=== PATIENT | male | born 1945 | race Caucasian/White ===

== ENCOUNTER 2020-11-17 08:47 | Outpatient (CLI) | payer OTHER, SELFPAY ==
--- NOTE | 2020-11-17 08:57 | US_ITS ---
WS: [id number] ULTRASOUND ABDOMEN LIMITED CLINICAL INFORMATION: EPIGASTRIC RUQ PAIN COMPARISON: None. FINDINGS: Liver Size: Enlarged Craniocaudal length: 15.6 cm. Echogenicity: Coarse Surface nodularity: None. Mass (size and location): None. Bile ducts Intrahepatic ducts: Normal. Common bile duct diameter: 0.7 cm. Gallbladder Cholelithiasis Gallstones: Present Gallbladder sludge: None. Gallbladder wall thickening: None. Pericholecystic fluid: None. Sonographic Cortez sign: Absent. Pancreas Normal as visualized. Right kidney: Normal. Hydronephrosis: None. Size: 11.0 cm x 5.9 cm x 6.0 cm. Abdominal aorta and IVC Visualized portions are normal. Ascites: None. US/US abdomen limited 23158 IMPRESSION: 1. Mild hepatomegaly. Diffuse fatty infiltration. 2. Cholelithiasis. No gallbladder wall thickening or pericholecystic fluid. Co mmon bile duct measures 6.5 mm. 3. No hydronephrosis right kidney.
== END 2020-11-17 08:48 | disposition home or self-care (01) ==
LOC: RAD 08:52
PROVIDERS: PCP Family Medicine; Visit Provider Family Medicine
DX: R10.13 Epigastric pain (principal); R10.11 Right upper quadrant pain; R16.0 Hepatomegaly, not elsewhere classified; K76.0 Fatty (change of) liver, not elsewhere classified; K80.20 Calculus of gallbladder without cholecystitis without obstruction
CPT/HCPCS: 76705

== ENCOUNTER → 2020-12-01 10:06 | Outpatient (BNVA) | payer OTHER, SELFPAY | PROVIDERS: PCP Family Medicine; Visit Provider Surgery | DX: K80.20 Calculus of gallbladder without cholecystitis without obstruction (principal); Z20.822 Contact with and (suspected) exposure to COVID-19 | CPT/HCPCS: 87635 ==

== ENCOUNTER 2020-12-05 10:26 | Day surgery (SDC) | payer OTHER, SELFPAY ==
--- NOTE | 2020-12-05 10:33 | ECG_ITS ---
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 Measurements Intervals [place] Rate: 47 P: 40 NV: 157 QRS: 45 QRSD: 93 T: 20 QT: 434 QTc: 387 Interpretive Statements SINUS BRADYCARDIA No previous ECG available for comparison Electronically Signed On 12-05-2020 16:10:11 CDT by Garry Hobson M.D. [id number]
[2020-12-05 10:41] VITALS: BP 156/80; PULSE 48; RESP 18; TEMP 36.7; O2SAT 96; BMI 31.3
[2020-12-05 11:09] LABS: Glucose Point of Care 137 mg/dL (70-110)
[2020-12-05] MEDS: sodium chloride 0.9% 1,000 ML 30 ML IV (11:09)
--- NOTE | 2020-12-05 11:10 | W.PM.OPSUD ---
Surgery/Procedure H&P Update DATE OF PROCEDURE: December 05, 2020 DATE H&P PERFORMED: 11/28/20 H&P UPDATE INFORMATION: I have reviewed H&P completed within last 30 days, I have examined patient prior to procedure and No changes to prior documentation PREOP DIAGNOSIS: cholelithiasis PLANNED PROCEDURE: Operation Date: 12/05/20 13:35 Proposed Procedures p Laparoscopic Cholecyst[place] 59681 k80.30(Not Applicable) - Renato Vasquez MD
--- NOTE | 2020-12-05 11:15 | P.ANESASSM_ITS ---
Pre-Anesthetic Assessment Pre-Anesthetic Assessment: Height/Weight: Height 1.7 m Weight 90.718 kg Temp Pulse Resp BP Pulse Ox 98.0 F 48 L 18 156/80 96 12/05/20 10:41 12/05/20 10:41 12/05/20 10:41 12/05/20 10:41 12/05/20 10:41 Preop Diagnosis: cholelithiasis Proposed Procedure: Operation Date: 12/05/20 13:35 Proposed Procedures p Laparoscopic Cholecystectomy [place] open 08495 k80.30(Not Applicable) - Renato Vasquez MD Familial anesthetic complications: None Was Beta Kristine taken within 24 hours: Yes Was Clonidine taken within 24 hours: N/A Last intake: Intake Last Liquid Date 12/04/20 Last Solid Date 12/04/20 Social: Social History: No alcohol and No tobacco Exam: Pre-Anes Outpt Exam: alert, oriented x 3, clear to auscultation bilaterally and regular rate & rhythm Airway: Cervical ROM: WNL MP: 3 Dentition: Partials and Other (bridge) Pulmonary: Pulmonary: Sleep apnea CV/HEM: CV/HEM: HTN GI: GI: GERD Metabolic: Metabolic: DM Anesthetic Plan: ASA status: 3 Anesthesia: General Risk of > 500 ml bloo d loss (7ml/kg in children): No Meds/Allergies Current Medications: Current Medications Generic Name Dose Route Start Last Admin Trade Name Freq PRN Reason Stop Dose Admin Sodium Chloride 1,000 mls @ 30 ml s/hr 12/05/20 09:30 12/05/20 11:09 Sodium Chloride 0.9% IV 12/06/20 09:29 30 mls/hr .Q24H JOSE MANUEL Administration PFSH Anesthesia PFSH: Medical History (Updated 11/28/20 @ 14:31 by Renato Vasquez MD) Diabetes mellitus GERD (gastroesophageal reflux disease) Gout Hyperlipidemia Hypertension Neuropathy Osteoarthritis Prostate cancer Sleep apnea Surgical History (Updated 11/28/20 @ 14:31 by Renato Vasquez MD) History of prostate surgery Radiation implants History of shoulder surgery Status post colonoscopy Family History (Updated 11/28/20 @ 14:14 by LOYD Ortega) Denies family history of Anesthesia complication Bleeding disorder Social History (Updated 11/28/20 @ 14:14 by LOYD Ortega) Smoking and tobacco status: never smoked Alcohol intake: never Data Anesthesia CBC & Chem 7: 12/05/20 10:51 Other Labs: Laboratory Results - last 48 hr 12/05/20 11:04 POC Glucose 137 H Cardiac Studies: No Data to Display
[2020-12-05 11:34] LABS: Blood Urea Nitrogen 13 mg/dL (8-23); Calcium 9.2 mg/dL (8.5-10.5); Carbon Dioxide 24 mmol/L (22-29); Chloride 104 mmol/L (98-107); Glucose 144 mg/dL (65-115); Osmolality Calculated 291 mOsm/kg (285-295); Sodium 139 mmol/L (136-145)
[2020-12-05 11:35] LABS: Anion Gap 15.6 (5-19); Potassium 4.6 mmol/L (3.5-5.1)
--- NOTE | 2020-12-05 12:28 | P.OP_ITS ---
Operative Report Date of procedure: December 05, 2020 Pre-op Diagnosis: cholelithiasis Post-op diagnosis: same Procedure Done: Laparoscopic cholecystectomy Specimens removed/disposition: Gallbladder Surgeon: Renato Vasquez Anesthesia: General Procedure: The patient was taken to the operating room and was intubated under general anesthesia. After the antibiotic had been administered, the abdomen was prepped and draped in a sterile manner. Using a #15 blade, a 1 centimeter infraumbilical curvilinear incision was made and using an open Adrian technique the peritoneal cavity was entered. A 10 millimeter port was placed and 15 millimeters of pneumoperitoneum was created. A 10 millimeter, 30 degrees scope was then introduced. Three 5 millimeter ports were placed in the epigastric, midclavicular and the anterior axillary line two fingerbreadths below the costal margin on the right side under the direct visualization. Ratcheted forceps were introduced into the lateral most port and was used to retract the fundus of the gallbladder cephalad and using forceps the infundibulum of the gallbladder was retracted laterally. Using L-hook cautery the peritoneum overlying the Calot's triangle was opened medially and laterally until the cystic duct and the cystic artery were skeletonized. Dissection was carried along the body of the gallbladder and after ensuring critical view of safety, 4 clips applied on the cystic duct and 3 clips applied on the cystic artery and cut leaving, 3 clips on the remaining portion of the duct and 2 clips on the remaining portion of the artery. The anterior and posterior branches of the cystic artery were clipped separately. The rest of the gallbladder was dissected off the liver using L- hook cautery. There was no bleeding or bile leaking noted from the gallbladder fossa and the clips appeared to be in place. An EndoCatch bag was introduced to remove the gallbladder. All the ports were removed under direct visualization and there was no bleeding noted from the port sites. The fascia of the umbilicus was closed using [id number] 0 Vicryl sutures and the subcutaneous tissue was approximated using 3-0 Vicryl sutures. The skin at all four ports were closed using 4-0 Monocryl and Dermabond. A total of 10 millimeters of 0.5% Marcaine was infiltrated around the port sites. The patient was stable throughout the procedure.
[2020-12-05 12:40] VITALS: BP 143/78; PULSE 78; RESP 15; TEMP 36.3; O2SAT 94
[2020-12-05 12:45] VITALS: BP 148/76; PULSE 58; RESP 17; O2SAT 96
[2020-12-05 12:50] VITALS: BP 148/76; PULSE 60; RESP 16; O2SAT 97
[2020-12-05 12:55] VITALS: BP 146/76; PULSE 61; RESP 18; TEMP 36.4; O2SAT 97
[2020-12-05 13:01] VITALS: BP 146/100; PULSE 63; RESP 18; TEMP 36.4; O2SAT 96
[2020-12-05] MEDS: HYDROcodone-acetaminophen 5-325 mg Tablet 1 TAB PO (13:18)
--- NOTE | 2020-12-05 17:43 | ANE.PACU2 ---
Inpatient post-anesthesia follow up: Airway intact: Yes Vital signs: Temperature 97.6 F Pulse Rate 63 Respiratory Rate 18 Blood Pressure 146/100 Pulse Oximetry 96 Oxygen Delivery Me thod Room Air Oxygen Flow Rate 3 Fraction of Inspir ed Oxygen Hydration adequate: Yes Nausea and vomiting: No Pain level: 3 Mental status: Baseline
== END 2020-12-05 13:40 | disposition home or self-care (01) ==
PROVIDERS: Visit Provider Surgery
PROC: 0FT44ZZ Resection of Gallbladder, Percutaneous Endoscopic Approach (ICD-10-PCS; CPT 47562; principal; 2020-12-05 13:15)
DX: K80.10 Calculus of gallbladder with chronic cholecystitis without obstruction (principal); G47.30 Sleep apnea, unspecified; I10 Essential (primary) hypertension; K21.9 Gastro-esophageal reflux disease without esophagitis; E78.5 Hyperlipidemia, unspecified; M19.90 Unspecified osteoarthritis, unspecified site; Z85.46 Personal history of malignant neoplasm of prostate; E11.40 Type 2 diabetes mellitus with diabetic neuropathy, unspecified; Z79.84 Long term (current) use of oral hypoglycemic drugs
CPT/HCPCS: 47562; 36415; 36416; 80048; 82962; 88304; 93005; J0690; J1100; J2405; J2704; J2710; J3010; J3490; J7030

== ENCOUNTER → 2021-10-31 08:06 | Outpatient (BNVA) | payer OTHER, SELFPAY | PROVIDERS: Referring Provider Family Medicine; Visit Provider Surgery | DX: K63.5 Polyp of colon (principal); R10.13 Epigastric pain | CPT/HCPCS: 99214 ==

== ENCOUNTER 2021-11-08 08:41 | Day surgery (SDC) | payer OTHER, SELFPAY ==
[2021-11-07 07:58] VITALS: BMI 33.2
[2021-11-08 09:04] VITALS: BP 144/69; PULSE 52; RESP 16; TEMP 36.1; O2SAT 97
[2021-11-08] MEDS: sodium chloride 0.9% 1,000 ML 30 ML IV (09:13)
--- NOTE | 2021-11-08 09:30 | ANES.PREANE2 ---
Pre-Anesthetic Assessment Height/Weight: Height 1.7 m Weight 96.162 kg Temp Pulse Resp BP Pulse Ox 97 F L 52 L 16 144/69 97 11/08/21 09:04 11/08/21 09:04 11/08/21 09:04 11/08/21 09:04 11/08/21 09:04 Preop Diagnosis: upper gi symptoms Operation Date: 11/08/21 10:30 Proposed Procedures p EGD Dilation 28072/39260/k63.5/r10.13(Not Applicable) - Renato Vasquez MD s Colonoscopy(Not Applicable) - Renato Vasquez MD Familial anesthetic complications: None Was Beta Kristine taken within 24 hours: N/A Was Clonidine taken within 24 hours: N/A Last intake: Intake Last Liquid Date 11/07/21 Last Liquid Time 20:00 Last Solid Date 11/06/21 Last Solid Time 00:00 Social No alcohol and No tobacco Airway Mallampati: Class III Dentition: partials (bridge) Pulmonary Sleep Apnea CV/HEM Hypertension GI Gastroesophageal Reflux Disease Metabolic Diabetes Mellitus Anesthetic Plan ASA status: 2 Anesthesia: MAC Risk of > 500 ml blood loss (7ml/kg in children): No Medications/Allergies Home Medications Medication Instructions Recorded Confirmed Last Taken Type amlodipine 10 mg tablet 10 mg PO DAILY 11/28/20 11/08/21 11/08/21 History glipizide 10 mg tablet 20 mg PO BID tab 11/28/20 11/08/21 11/07/21 History hydrochlorothiazide 25 mg tablet 25 mg PO DAILY 11/28/20 11/08/21 11/07/21 History lisinopril 20 mg tablet 20 mg PO BID 11/28/20 11/08/21 11/07/21 History metformin 1,000 mg tablet 1,000 mg PO BID tab 11/28/20 11/08/21 11/07/21 History metoprolol succinate 25 mg 25 mg PO BID tab 11/28/20 11/08/21 11/08/21 History tablet,extended release 24 hr omega-3 fatty acids 1,000 mg 1,000 mg PO DAILY 11/28/20 11/08/21 11/07/21 History capsule (Fish Oil Concentrate) pantoprazole 40 mg tablet,delayed 40 mg PO DAILY 11/28/20 11/08/21 11/07/21 History release pioglitazone 30 mg tablet 30 mg PO DAILY 11/28/20 11/08/21 11/07/21 History tamsulosin 0.4 mg capsule 0.4 mg PO BID cap 11/28/20 11/08/21 11/07/21 History allopurinol 300 mg tablet 150 mg PO DAILY 10/31/21 11/08/21 11/07/21 History cholestyramine (with sugar) 4 gram 1 ea PO DAILY 10/31/21 11/08/21 11/07/21 History oral powder ondansetron HCl 4 mg tablet 2 mg PO Q6H 11/07/21 11/08/21 11/07/21 History Allergies Allergy/AdvReac Type Severity Reaction Status Date / Time pneumococcal vaccine Allergy Unknown Verified 11/07/21 08:07 [From Pneumovax-23] pravastatin Allergy Unknown Verified 11/07/21 08:07 Current Medications Generic Name Dose Route Start Last Admin Trade Name Freq PRN Reason Stop Dose Admin Sodium Chloride 1,000 mls @ 30 mls/hr 11/08/21 09:00 11/08/21 09:13 Sodium Chloride 0.9% IV 11/09/21 08:59 30 mls/hr .Q24H JOSE MANUEL Administration PFSH Anesthesia Medical History Colon polyps Diabetes mellitus GERD (gastroesophageal reflux disease) Gout Hyperlipidemia Hypertension Neuropathy Osteoarthritis Prostate cancer Sleep apnea Surgical History History of prostate surgery Radiation implants History of shoulder surgery Status post colonoscopy Status post laparoscopic cholecystectomy (12/05/20) Family History Denies family history of Anesthesia complication Bleeding disorder Social History Smoking and tobacco status: never smoked Alcohol intake: never Data Anesthesia Cardiac Studies: No Data to Display
--- NOTE | 2021-11-08 10:58 | W.PM.OPSFHP ---
Same Day Surgery H&P Indication for Procedure/HPI DATE OF PROCEDURE: November 08, 2021 CHIEF COMPLAINT/INDICATIONFOR SURGICAL PROCEDURE: Dysphagia/colon polyps PREOP DIAGNOSIS: upper gi symptoms PLANNED PROCEDURE: Operation Date: 11/08/21 10:30 Proposed Procedures p EGD Dilation 62080/87858/k63.5/r10.13(Not Applicable) - Renato Vasquez MD s Colonoscopy(Not Applicable) - Renato Vasquez MD Medications/Allergies* Home Medications Medication Instructions Recorded Confirmed Type amlodipine 10 mg tablet 10 mg PO DAILY 11/28/20 11/08/21 History glipizide 10 mg tablet 20 mg PO BID tab 11/28/20 11/08/21 History hydrochlorothiazide 25 mg tablet 25 mg PO DAILY 11/28/20 11/08/21 History lisinopril 20 mg tablet 20 mg PO BID 11/28/20 11/08/21 History metformin 1,000 mg tablet 1,000 mg PO BID tab 11/28/20 11/08/21 History metoprolol succinate 25 mg 25 mg PO BID tab 11/28/20 11/08/21 History tablet,extended release 24 hr omega-3 fatty acids 1,000 mg 1,000 mg PO DAILY 11/28/20 11/08/21 History capsule (Fish Oil Concentrate) pantoprazole 40 mg tablet,delayed 40 mg PO DAILY 11/28/20 11/08/21 History release pioglitazone 30 mg tablet 30 mg PO DAILY 11/28/20 11/08/21 History tamsulosin 0.4 mg capsule 0.4 mg PO BID cap 11/28/20 11/08/21 History allopurinol 300 mg tablet 150 mg PO DAILY 10/31/21 11/08/21 History cholestyramine (with sugar) 4 gram 1 ea PO DAILY 10/31/21 11/08/21 History oral powder ondansetron HCl 4 mg tablet 2 mg PO Q6H 11/07/21 11/08/21 History Allergies/Adverse Reactions Allergy/AdvReac Type Severity Reaction Status Date / Time pneumococcal vaccine Allergy Unknown Verified 11/07/21 08:07 [From Pneumovax-23] pravastatin Allergy Unknown Verified 11/07/21 08:07 Current Medications: Generic Name Dose Route Start Last Admin Trade Name Freq PRN Reason Stop Dose Admin Sodium Chloride 1,000 mls @ 30 mls/hr 11/08/21 09:00 11/08/21 09:13 Sodium Chloride 0.9% IV 11/09/21 08:59 30 mls/hr .Q24H JOSE MANUEL Administration Pertinent History/Comorbid Conditions* Medical History (Updated 10/31/21 @ 09:04 by Renato Vasquez MD) Colon polyps Diabetes mellitus GERD (gastroesophageal reflux disease) Gout Hyperlipidemia Hypertension Neuropathy Osteoarthritis Prostate cancer Sleep apnea Surgical History (Updated 12/21/20 @ 16:41 by Renato Vasquez MD) History of prostate surgery Radiation implants History of shoulder surgery Status post colonoscopy Status post laparoscopic cholecystectomy (12/05/20) Family History (Updated 11/28/20 @ 14:14 by Carolyn Guy RN) Denies family history of Anesthesia complication Bleeding disorder Social History Smoking and tobacco status: never smoked Alcohol intake: never Pertinent Exam Findings alert, oriented x 3 and regular rate & rhythm Recommendations Surgery/Procedure today Coding Level of Care Code Acute Cost Recovery Technician for Jannie Pleitez
[2021-11-08 11:48] VITALS: BP 126/82; PULSE 61; RESP 16; TEMP 36.2; O2SAT 91
[2021-11-08 11:49] VITALS: BP 128/84; PULSE 61; RESP 18; O2SAT 94
--- NOTE | 2021-11-08 13:39 | ANE.PACU2 ---
Inpatient post-anesthesia follow up: Airway intact: Yes Vital signs: Temperature 97.2 F Pulse Rate 61 Respiratory Rate 18 Blood Pressure 128/84 Pulse Oximetry 94 Oxygen Delivery Me thod Room Air Oxygen Flow Rate 3 Fraction of Inspir ed Oxygen Hydration adequate: Yes Nausea and vomiting: No Pain level: 1 Mental status: Baseline
== END 2021-11-08 12:12 | disposition home or self-care (01) ==
PROVIDERS: PCP Family Medicine; Visit Provider Surgery
PROC: 0DJD8ZZ Inspection of Lower Intestinal Tract, Via Natural or Artificial Opening Endoscopic (ICD-10-PCS; CPT 45378; 2021-11-08 10:30)
DX: R10.13 Epigastric pain (principal); Z86.010 Personal history of colon polyps; K57.30 Diverticulosis of large intestine without perforation or abscess without bleeding; K64.8 Other hemorrhoids; E11.40 Type 2 diabetes mellitus with diabetic neuropathy, unspecified; Z79.84 Long term (current) use of oral hypoglycemic drugs; K21.9 Gastro-esophageal reflux disease without esophagitis; E78.5 Hyperlipidemia, unspecified; I10 Essential (primary) hypertension; M19.90 Unspecified osteoarthritis, unspecified site; Z85.46 Personal history of malignant neoplasm of prostate; G47.30 Sleep apnea, unspecified
CPT/HCPCS: 43239; 45378; 88305; 88342; J2704; J3490; J7030

== ENCOUNTER 2022-02-08 09:58 | Outpatient (CLI) | payer OTHER, SELFPAY ==
--- NOTE | 2022-02-08 10:15 | FL_ITS ---
WS: [id number] Exam: FL barium swallow modifd [id number] Date/Time of Exam: 02/08/2022 10:14 AM Reason For Exam: R13.10 - Dysphagia, unspecified Fluoroscopy time: 1min [id number] minutes # of spot films: 1 modified barium swallow was performed in conjunction with the speech therapy servi ce. The patient tolerated thin liquid, nectar consistency and solid barium mixture foodstuffs without asp iration or penetration. Swallowing function at the level of oropharynx appears normal. The patient in gested a barium pill without complication. FL/FL barium swallow modifd 75761 IMPRESSION: 1. Modified barium swallow demonstrates no sign of penetration or aspiration. T he patient tolerated all consistencies of barium mixture foodstuffs without com plication. A separate report of recommendations and findings will follow from the speech t herapy service.
== END 2022-02-08 09:59 | disposition home or self-care (01) ==
PROVIDERS: PCP Family Medicine; Visit Provider Surgery
DX: R13.10 Dysphagia, unspecified (principal)
CPT/HCPCS: 74230; 92611

== ENCOUNTER → 2023-01-01 08:47 | Outpatient (BNVA) | payer OTHER, SELFPAY | PROVIDERS: PCP Family Medicine; Referring Provider Family Medicine; Visit Provider Specialist | DX: G50.0 Trigeminal neuralgia (principal); Y83.8 Other surgical procedures as the cause of abnormal reaction of the patient, or of later complication, without mention of misadventure at the time of the procedure | CPT/HCPCS: 99204 ==

== ENCOUNTER → 2023-02-12 11:39 | Outpatient (BNVA) | payer OTHER, SELFPAY | PROVIDERS: PCP Family Medicine; Visit Provider Specialist | DX: G50.0 Trigeminal neuralgia | CPT/HCPCS: 99213 ==

== ENCOUNTER → 2024-02-11 11:14 | Outpatient (BNVA) | payer OTHER, SELFPAY | PROVIDERS: PCP Family Medicine; Visit Provider Specialist | DX: G50.0 Trigeminal neuralgia (principal) | CPT/HCPCS: 99213 ==

== ENCOUNTER → 2025-01-13 10:39 | Outpatient (BNVA) | payer OTHER, SELFPAY | PROVIDERS: PCP Family Medicine; Visit Provider Surgery | DX: D17.21 Benign lipomatous neoplasm of skin and subcutaneous tissue of right arm (principal) | CPT/HCPCS: 99214 ==

== ENCOUNTER 2025-01-18 09:35 | Day surgery (SDC) | payer OTHER, SELFPAY ==
[2025-01-18 09:51] VITALS: BP 166/83; PULSE 55; RESP 17; TEMP 36.4; O2SAT 95
--- NOTE | 2025-01-18 10:00 | P.HPUD_ITS ---
Surgery/Procedure H&P Update DATE OF PROCEDURE: January 19, 2025 DATE H&P PERFORMED: 01/13/25 H&P UPDATE INFORMATION: I have reviewed H&P completed within last 30 days, I have examined patient prior to procedure, No changes to prior documentation, H&P is in [facility] EMR on date indicated and Risks and benefits of the procedure reviewed PLANNED PROCEDURE: Operation Date: 01/18/25 11:00 Proposed Procedures p Excision RIGHT Upper Extremity Subcutaneous Mass 30575, D17.21(Right) - Arvin Persaud MD
[2025-01-18] MEDS: ceFAZolin 2,000 mg SDV 2000 MG IVP (11:27)
[2025-01-18] MEDS: BUPivacaine 0.25% INJ 10 mL INJECTION (11:56)
[2025-01-18] MEDS: lidocaine-epi 1% 20 mL INJ 10 ML INJECTION (11:56)
[2025-01-18 12:14] VITALS: BP 129/66; PULSE 60; RESP 10; TEMP 36.1; O2SAT 95
--- NOTE | 2025-01-18 12:17 | P.OP_ITS ---
Operative Report Date of procedure: January 18, 2025 Pre-op diagnosis: Right upper extremity subcutaneous lesion Post-op diagnosis: Right upper extremity subcutaneous lesion measuring 3.5 cm Post-op findings: There was an subcutaneous tissue lesion of the right upper extremity at the level of the posterior arm, the lesion was 3.5x 1 cm x 2 cm Procedure done: Excision of subcutaneous lesion of the right extremity Specimens removed/disposition: Subcutaneous lesion of the right upper extremity Surgeon: Arvin Persaud MD Mental Health Counselor: ADEOLA OR Staff Estimated blood loss: 5 Complications: none apparent Brief History: 79-year-old male with subcutaneous lesion of the right upper extremity who presented for excision. After discussion we will resume benefits as documented my preop note decided to proceed Procedure: Patient was brought into the OR, he was placed in a supine position. Moderate anesthesia and sedation was given. The right upper extremity was prepped and draped in usual sterile fashion. Timeout was conducted. In the previously marked area I proceeded to infiltrate local anesthesia. I then made a 3 cm incision overlying the subcutaneous lesion. The incision was deepened until the subcutaneous tissue was identified. I then used electrocautery to circumferentially dissect around the lesion. The lesion was elevated with an Allis clamp once again confidentially dissected from the tissue, the lesion was excised and passed to the scrub table to be sent to pathology. No residual tissue was noted at the base. Hemostasis was achieved. Local anesthesia was infiltrated. The wound was irrigated and then closed in layers with #3 Vicryl for the subcutaneous tissue and #4 Monocryl for the skin. Dermabond was applied. At the end of the procedure all counts were correct the patient tolerated well the procedure was transferred to the PACU in stable condition.
[2025-01-18 12:19] VITALS: BP 131/67; PULSE 60; RESP 11; O2SAT 94
[2025-01-18 12:24] VITALS: BP 139/65; PULSE 59; RESP 13; O2SAT 95
[2025-01-18 12:29] VITALS: BP 135/68; PULSE 60; RESP 15; TEMP 36.3; O2SAT 96
[2025-01-18 12:47] VITALS: BP 133/76; PULSE 58; RESP 17; O2SAT 96
--- NOTE | 2025-01-18 13:25 | ANE.PACU2 ---
Inpatient post-anesthesia follow up: Airway intact: Yes Vital signs: Temperature 97.4 F Pulse Rate 58 Respiratory Rate 17 Blood Pressure 133/76 Pulse Oximetry 96 Oxygen Delivery Me thod Room Air Oxygen Flow Rate Fraction of Inspir ed Oxygen Hydration adequate: Yes Nausea and vomiting: No Pain level: 1 Mental status: Baseline
== END 2025-01-18 13:25 | disposition home or self-care (01) ==
PROVIDERS: PCP Family Medicine; Visit Provider Surgery
PROC: (CPT 24071; principal; 2025-01-18 10:50)
DX: R22.31 Localized swelling, mass and lump, right upper limb (principal); K21.9 Gastro-esophageal reflux disease without esophagitis; Z79.84 Long term (current) use of oral hypoglycemic drugs; E78.5 Hyperlipidemia, unspecified; I10 Essential (primary) hypertension; G47.30 Sleep apnea, unspecified; E11.9 Type 2 diabetes mellitus without complications; Z87.891 Personal history of nicotine dependence
CPT/HCPCS: 24071; 36416; 82962; 88304; J0690; J2704; J3010; J3490; J7030; J9999

== ENCOUNTER → 2025-02-02 08:05 | Outpatient (BNVA) | payer OTHER, SELFPAY | PROVIDERS: PCP Family Medicine; Visit Provider Surgery | DX: D17.21 Benign lipomatous neoplasm of skin and subcutaneous tissue of right arm (principal) | CPT/HCPCS: 99203 ==

== ENCOUNTER → 2025-02-10 09:04 | Outpatient (BNVA) | payer OTHER, SELFPAY | PROVIDERS: PCP Family Medicine; Visit Provider Specialist | DX: G50.0 Trigeminal neuralgia (principal); R03.0 Elevated blood-pressure reading, without diagnosis of hypertension | CPT/HCPCS: 99213 ==